=== PATIENT | female | born 1985 | race Caucasian/White ===

== ENCOUNTER 2024-06-10 06:20 | Day surgery (SDC) | payer BC, OTHER ==
[2024-06-08 10:50] VITALS: BMI 20.5
[2024-06-10] MEDS ORDERED: LIDOCAINE HCL 1%, 10 MG/ML (20ML VIAL) ONE (08:36)
[2024-06-10] MEDS ORDERED: ONDANSETRON 4 MG/2 ML VIAL ONE (09:00)
[2024-06-10] MEDS ORDERED: DEXAMETHASONE SOD PHOSPHATE 4 MG/1 ML VIAL ONE (09:00)
[2024-06-10] MEDS ORDERED: PROPOFOL 20 ML ONE (09:00)
[2024-06-10] MEDS ORDERED: MIDAZOLAM HCL 2 MG/2 ML SINGLE DOSE VIAL ONE (09:02)
[2024-06-10] MEDS ORDERED: ROCURONIUM BROMIDE 50 MG/5 ML SYRINGE ONE (09:06)
[2024-06-10] MEDS: ceFAZolin SODIUM 1 GM VIAL IVPB ONE (09:07)
[2024-06-10] MEDS: BUPIVACAINE HCL/PF 0.5% (5MG/ML) 10 ML VIAL IJ ONE (09:08)
[2024-06-10] MEDS: FERRIC SUBSULFATE 500 ML BOTTLE TP ONE (10:53)
[2024-06-10] MEDS ORDERED: SUGAMMADEX SODIUM 200 MG/2 ML VIAL ONE (10:58)
[2024-06-10] MEDS ORDERED: ACETAMINOPHEN INJECTION 100 ML ONE (11:59)
[2024-06-10] MEDS: ACETAMINOPHEN 1000 MG/100 ML BAG IVPB ONE (12:03)
[2024-06-10 12:56] VITALS: TEMP 97.3
[2024-06-10 15:56] VITALS: BP 118/72; PULSE 73; RESP 18
[2024-06-11] MEDS ORDERED: PRENATAL VITAMINS W/ FOLIC ACID TABLET (FP) PO SCH (10:00)
[2024-06-11] MEDS ORDERED: ASCORBIC ACID 500 MG TABLET (FP) PO SCH (10:00)
[2024-06-11] MEDS ORDERED: PATIENT'S OWN MEDICATION (NON-FORMULARY) (Omega-3s/Dha/Epa/Fish Oil [Fish Oil Omega-3 Soft PO SCH (10:00)
[2024-06-11] MEDS ORDERED: CHOLECALCIFEROL (VIT D3) 1,000 UNIT (25 MCG) TABLET PO SCH (10:00)
== END 2024-06-10 15:05 | disposition home or self-care (01) ==
LOC: JASU-SURG 06:20
PROVIDERS: ATTEND Obstetrics & Gynecology
PROC: 0U904ZX Drainage of Right Ovary, Percutaneous Endoscopic Approach, Diagnostic (ICD-10-PCS; principal; 2024-06-10 08:30)
DX: N83.201 Unspecified ovarian cyst, right side (principal); K66.0 Peritoneal adhesions (postprocedural) (postinfection)
CPT/HCPCS: 94760; J0131